=== PATIENT | female | born 1995 | race Caucasian/White ===

== ENCOUNTER 2022-01-06 21:53 | Emergency (ER) | payer MEDICAID ==
[~2022-01-06] VITALS: Ht 160 cm; Wt 61.4 kg
[2022-01-06 21:57] VITALS: BP 126/83; TEMP 99
[2022-01-06 23:25] VITALS: PULSE 68
== END 2022-01-06 23:26 | disposition home or self-care (01) ==
LOC: COL.ER 21:53
DX: S27.818A Other injury of esophagus (thoracic part), initial encounter (principal); R09.89 Other specified symptoms and signs involving the circulatory and respiratory systems; F17.290 Nicotine dependence, other tobacco product, uncomplicated; X58.XXXA Exposure to other specified factors, initial encounter